=== PATIENT | male | born 2000 | race Two or more races ===

== ENCOUNTER 2023-08-16 21:49 | Emergency (ER) | payer OTHER ==
[2023-08-16 22:04] VITALS: BP 136/68; O2SAT 98
[2023-08-16] MEDS ORDERED: BACITRACIN ZINC OINT 1 PACKET TOP STA (22:08)
[2023-08-16] MEDS ORDERED: IBUPROFEN 600 MG TABLET PO STA (22:08)
--- NOTE | 2023-08-16 22:15 | ED Physician Documentation ---
History of Present Illness - Stated complaint Stated Complaint: L ANKLE INJ - Chief complaint Chief Complaint: Laceration - History obtained from History obtained from: Patient - Additonal information Additional information: 23yM previously presents after twisting L ankle and falling to ground while playing football 2 hours [employer]. patient bore weight immediately after and walked to [place]. endorses swelling and pain with rom PD PAST MEDICAL HISTORY - Present Medications Home Medications: Ambulatory Orders Medication Instructions Recorded Confirmed No Known Home Medications 08/16/23 08/16/23 - Allergies Allergies/Adverse Reactions: Allergies Allergy/AdvReac Type Severity Reaction Status Date / Time No Known Drug Allergies Allergy Verified 08/16/23 22:00 PD ED PE NORMAL - Vitals Vital signs reviewed: Yes - General General: Alert and oriented X 3, No acute distress, Well developed/nourished - HEENT HEENT: Atraumatic, PERRL, EOMI, Moist mucous membranes, Pharynx benign - Derm Derm: Normal color, Warm and dry, Other (abrasion L knee) - Extremities Extremities: Other (swelling L ankle without ecchymosis. ttp along lateral malleolus. tender with rom of ankle. otherwise nontender. 2+ radial pulse, normal sensation, good cap refill LLE) - Neuro Neuro: No motor deficit, No sensory deficit Results - Vitals Vitals: Vital Signs - 24 hr 08/16/23 21:55 Temperature 36.9 C Heart Rate 66 Respiratory 16 Rate Blood Pressure 136/68 H O2 Saturation 98 Oxygen O2 Source Room air PD Medical Decision Making - ED course ED course: 23yM presents to the ED with L ankle pain and swelling s/p twisting while playing football. motrin provided with improvement in pain. xrays noncontributory. plan to f/u outpatient ortho. cristal wrap applied. return precauti ons given Departure - Departure Disposition: 01 Home, Self Care Clinical Impression: Ankle injury Condition: Stable Instructions: ED RICE Follow-Up: Markell Serra MD [Provider Admit Priv/Credential] - Comments: You were seen in the emergency department for ankle injury. Your xrays showed no break in bone but if you are still having severe pain in 1 week you can have these repeated with orthopedics. Take motrin 400 to 600 mg every 6 hours as needed for pain with a small meal. Please follow-up with your primary care provider and return to the emergency department if you have any new or worsening symptoms or other concerns. Forms: PCP List
--- NOTE | 2023-08-16 23:10 | XRAY Report ---
PROCEDURE: Ankle 3 View LT INDICATIONS: football injury/swollen L ankle TECHNIQUE: 3 views of the ankle were acquired. COMPARISON: None. FINDINGS: Bones: No fractures or dislocations. Ankle mortise is normally aligned. No suspicious bony lesions . Soft tissues: No tibiotalar joint effusion. Achilles tendon appears normal. Moderate lateral peria rticular soft tissue swelling. IMPRESSION: Lateral soft tissue swelling without visible underlying fracture. Reviewed by: Alyson Weiss MD on 08/16/2023 11:09 PM PDT Approved by: Alyson Weiss MD on 08/16/2023 11:09 PM PDT Station ID: [id number]
== END 2023-08-17 00:30 | disposition home or self-care (01) ==
LOC: ED 21:49
DX: S99.912A Unspecified injury of left ankle, initial encounter (principal); W19.XXXA Unspecified fall, initial encounter; Y93.61 Activity, american tackle football
CPT/HCPCS: 73610; 99283; A9270